=== PATIENT | female | born 1990 | race African-American/Black ===

== ENCOUNTER 2019-04-12 06:17 | Emergency (ER) | payer MEDICAID ==
[~2019-04-12] VITALS: Ht 162.6 cm; Wt 45.0 kg
[2019-04-12 07:42] VITALS: BP 111/81
== END 2019-04-12 08:05 | disposition home or self-care (01) ==
LOC: ER 06:17
DX: F12.188 Cannabis abuse with other cannabis-induced disorder (principal); F19.19 Other psychoactive substance abuse with unspecified psychoactive substance-induced disorder; F10.188 Alcohol abuse with other alcohol-induced disorder; Y90.9 Presence of alcohol in blood, level not specified; Z86.59 Personal history of other mental and behavioral disorders
CPT/HCPCS: 99283

== ENCOUNTER 2021-04-21 17:34 | Emergency (ER) | payer MEDICAID ==
[~2021-04-21] VITALS: Ht 167.6 cm; Wt 48.0 kg
[2021-04-21] MEDS ORDERED: MORPHINE SULFATE 2 MG/ML CPJ (NOT FOR IM USE) IV ONE (22:15)
[2021-04-21 22:32] LABS: BASOPHILS % 0.9 % (0.0-2.0); EOSINOPHILS % 3.2 % (0.0-5.0); HEMATOCRIT. 29.5 % (36.0-48.0); HEMOGLOBIN. 9.6 g/dL (12.0-16.0); LYMPHOCYTES % 47.3 % (20.0-50.0); MEAN CORPUSCULAR HEMOGLOBIN 25.1 pg (28.0-32.0); MEAN CORPUSCULAR VOLUME 76.8 fL (81.0-99.0); MEAN PLATELET VOLUME 8.1 fl (7.4-10.4); MONOCYTES % 4.8 % (2.0-8.0); NEUTROPHILS % 43.8 % (40.0-76.0); PLATELET 274 x1000/uL (130-400); RED BLOOD CELL COUNT 3.85 mill/uL (4.2-5.4); RED CELL DISTRIBUTION WIDTH 16.4 % (11.6-14.6)
[2021-04-21 22:40] LABS: CHLORIDE 109 mEq/L (98-107)
[2021-04-21 22:43] LABS: PROTHROMBIN TIME 11.1 sec (9.6-11.0)
[2021-04-22 00:17] LABS: HCG SCREEN NEGATIVE
[2021-04-22 00:23] LABS: CLARITY URINE CLEAR (CLEAR); COLOR URINE YELLOW (YELLOW); KETONES URINE TRACE (NEGATIVE); LEUKOCYTE ESTERASE URINE 1+ (NEGATIVE); NITRITE URINE NEGATIVE (NEGATIVE); OCCULT BLOOD URINE NEGATIVE (NEGATIVE); PROTEIN URINE NEGATIVE (NEGATIVE); SPECIFIC GRAVITY URINE 1.016 (1.005-1.030); UROBILINOGEN URINE 0.2 E.U./dL (0.2-1.0)
[2021-04-22] MEDS ORDERED: SODIUM CHLORIDE 0.9% 1,000 ML IV ONE (00:45)
[2021-04-22] MEDS ORDERED: FAMOTIDINE 20MG/2ML VIAL IV STA (01:31)
[2021-04-22] MEDS ORDERED: MORPHINE SULFATE 4 MG/ML CPJ (NOT FOR IM USE) IV STA (01:31)
[2021-04-22] MEDS ORDERED: CEFTRIAXONE 1 G PREMIX 50 ML IV ONE (01:45)
[2021-04-22] MEDS ORDERED: AZITHROMYCIN 500 MG TABLET PO ONE (01:45)
[2021-04-22] MEDS ORDERED: NITR-87 MT (05:42)
[2021-04-22 06:43] VITALS: BP 107/66
[2021-04-22] MEDS ORDERED: IOHEXOL-300 100 ML BOTTLE ONE (07:32)
[2021-04-24 10:07] LABS: NEISSERIA GONORRHOEAE NAA Negative (Negative)
== END 2021-04-22 06:45 | disposition home or self-care (01) ==
LOC: ER 17:34
DX: R10.9 Unspecified abdominal pain (principal); J45.909 Unspecified asthma, uncomplicated; F12.10 Cannabis abuse, uncomplicated
CPT/HCPCS: 36415; 74177; 76830; 76856; 80053; 81003; 81025; 83690; 84703; 85025; 85610; 87491; 87591; 96365; 96375; 96376; 99285; J0696; J2270; J3490; J7030; Q9967